=== PATIENT | male | born 1965 | race Two or more races ===

== ENCOUNTER → 2016-08-13 | Outpatient (CLI) | payer OTHER ==
[~2016-08-13] MED LIST: IOHEXOL 350 MG/ML 100ML IJ ONE
[2016-08-13 10:21] VITALS: BP 111/79
[2016-08-13 10:22] VITALS: BP 111/76
== END | disposition home or self-care (01) ==
LOC: Rad HDHVI 08:42
PROVIDERS: ATTEND Internal Medicine Cardiovascular Disease
DX: R51 Headache (principal); I10 Essential (primary) hypertension; I66.9 Occlusion and stenosis of unspecified cerebral artery; E78.5 Hyperlipidemia, unspecified; H53.8 Other visual disturbances
CPT/HCPCS: 70470; 93306; G0463; Q9967; 96374

== ENCOUNTER → 2016-08-19 | Outpatient (CLI) | payer OTHER | END | disposition home or self-care (01) | LOC: Rad HDHVI 13:07 | PROVIDERS: ATTEND Internal Medicine Cardiovascular Disease | DX: I66.9 Occlusion and stenosis of unspecified cerebral artery (principal); I73.9 Peripheral vascular disease, unspecified | CPT/HCPCS: 93880 ==

== ENCOUNTER → 2018-11-24 | Outpatient (CLI) | payer OTHER | END | disposition home or self-care (01) | LOC: LAB 09:21 | PROVIDERS: ATTEND Internal Medicine | DX: E29.1 Testicular hypofunction (principal) | CPT/HCPCS: 36415; 84403 ==

== ENCOUNTER 2020-02-15 16:32 | Emergency (ER) | payer OTHER ==
[~2020-02-15] VITALS: Ht 180.3 cm; Wt 122.5 kg
[2020-02-15 20:04] VITALS: BP 142/85
== END 2020-02-15 20:58 | disposition home or self-care (01) ==
LOC: ER 16:32
DX: S63.502A Unspecified sprain of left wrist, initial encounter (principal); R07.89 Other chest pain; E78.5 Hyperlipidemia, unspecified; V59.49XA Driver of pick-up truck or van injured in collision with other motor vehicles in traffic accident, initial encounter; Y93.89 Activity, other specified; Y99.8 Other external cause status; Y92.410 Unspecified street and highway as the place of occurrence of the external cause
CPT/HCPCS: 71250; 73110; 74176